=== PATIENT | male | born 1960 | race African-American/Black ===

== ENCOUNTER 2023-01-03 20:26 | Emergency (ER) | payer OTHER ==
[~2023-01-03] VITALS: Ht 188 cm; Wt 81.2 kg
[2023-01-03 21:10] VITALS: BP 116/69; PULSE 101; RESP 16; TEMP 97.9; O2SAT 99
[2023-01-03] MEDS ORDERED: MAGN400S60 PO (23:11)
[2023-01-03 23:15] VITALS: O2SAT 99
== END 2023-01-03 23:15 | disposition home or self-care (01) ==
LOC: MED 20:26
DX: K59.00 Constipation, unspecified (principal); Z79.899 Other long term (current) drug therapy
CPT/HCPCS: 99282

== ENCOUNTER 2023-01-19 12:07 | Emergency (ER) | payer MEDICAID, OTHER ==
[~2023-01-19] VITALS: Ht 188 cm; Wt 78.0 kg
[~2023-01-19 12:07] MED LIST: MAGN400S60 PO
[2023-01-19 12:57] VITALS: BP 128/82; PULSE 102; RESP 18; TEMP 98.2; O2SAT 100
[2023-01-19] MEDS ORDERED: ONDANSETRON 4 MG ODT PO ONE (14:10)
[2023-01-19] MEDS ORDERED: ONDA8TAB87 PO (14:32)
== END 2023-01-19 14:39 | disposition home or self-care (01) ==
LOC: MED 12:07
DX: T83.030A Leakage of cystostomy catheter, initial encounter (principal); R11.2 Nausea with vomiting, unspecified; R10.13 Epigastric pain; I10 Essential (primary) hypertension; F17.200 Nicotine dependence, unspecified, uncomplicated; Z79.899 Other long term (current) drug therapy; Y84.6 Urinary catheterization as the cause of abnormal reaction of the patient, or of later complication, without mention of misadventure at the time of the procedure
CPT/HCPCS: 99283; Q0162